=== PATIENT | female | born 1930 | race Caucasian/White ===

== ENCOUNTER → 2017-06-24 | Outpatient (CLI) | payer MEDICARE, OTHER ==
[~2017-06-24] MED LIST: ALLO100 PO; ASPI81CH PO; ASPI81EC PO; ATOR40TA PO; CHOL10002 PO; CIPR500 PO; CLON.1 PO; CLOP75 PO; CONESTTC VAG; Cranberry300 MG PO; FISH1000 PO; GABA300 PO; HYDACE10B PO; LATA.005SO LEFTEYE; LAVAP17G PO; LEVFLO500 PO; LEVSOD75 PO; METO25 PO; METO25ER PO; METO50; MULVITB PO; NEBI5 PO; NEPHROCAP PO; POLY17UD PO; PYRI100 PO; SERT25 PO; SEVEC800 PO; TIMO.5OPSO LEFTEYE; VALS80 PO; ZINC15 PO; [UNRECOGNIZED DRUG - OTHER] PO
== END | disposition home or self-care (01) ==
LOC: PLD 13:43 → LAB SHORT 13:43
DX: D04.61 Carcinoma in situ of skin of right upper limb, including shoulder (principal)
CPT/HCPCS: 88305